=== PATIENT | male | born 1985 | race Two or more races ===

== ENCOUNTER 2016-09-23 12:45 | Emergency (ER) | payer SELFPAY ==
[~2016-09-23] VITALS: Ht 170.2 cm; Wt 95.0 kg
[2016-09-23 13:04] VITALS: BP 118/79
[2016-09-23] MEDS ORDERED: TETANUS, DIPHTHERIA, PERTUSSIS VAC/PF 0.5ML (>7YR OLD) IM ONE (13:30)
== END 2016-09-23 14:32 | disposition home or self-care (01) ==
LOC: ER 12:45
DX: S61.412A Laceration without foreign body of left hand, initial encounter (principal); W26.0XXA Contact with knife, initial encounter; Y93.89 Activity, other specified; Y92.89 Other specified places as the place of occurrence of the external cause; Y99.8 Other external cause status; Z98.890 Other specified postprocedural states
CPT/HCPCS: 73130; 90471; 90715; 99284